=== PATIENT | male | born 1965 | race Caucasian/White ===

== ENCOUNTER → 2024-09-11 18:27 | Outpatient (REF) | payer BC, SELFPAY | LOC: MRI 3T 18:27 | PROVIDERS: ATTENDING PHYSICIAN Specialist; FAMILY PHYSICIAN Family Medicine | DX: R97.20 Elevated prostate specific antigen [PSA] (principal) | CPT/HCPCS: 72197; A9575 ==

== ENCOUNTER 2025-01-23 06:17 | Day surgery (SDC) | payer BC, SELFPAY ==
[2025-01-07 09:01] LABS: Hematocrit 44.9 % (39.0-52.0); Hemoglobin 15.3 g/dL (13.0-18.0); Mean Corp Hgb Conc. 34.1 g/dL (33.0-37.0); Mean Corpuscular Volume 91.1 fL (80.0-94.0); Mean Platelet Volume 10.5 fL (7.4-10.4); Platelet Count 173 10^3/uL (130-400); Red Blood Cell Count 4.93 10^6/uL (4.70-6.10); Red Cell Dist. Width 12.2 % (11.5-14.5); White Blood Cell Count 4.8 10^3/uL (4.8-10.8)
[2025-01-07 09:30] LABS: Blood Urea Nitrogen 22 mg/dl (9-20); Calcium 9.1 mg/dl (8.4-10.2); Carbon Dioxide 29 mmol/L (22-30); Chloride 101 mmol/L (98-107); Glucose 100 mg/dl (70-99); Potassium 4.2 mmol/L (3.5-5.1); Sodium 139 mmol/L (135-145); eGFR > 60.00
[2025-01-07 14:09] VITALS: BMI 28.9
[2025-01-23] VITALS (7 sets, daily range): BP systolic 106–160; BP diastolic 54–101; BMI 28.9
[2025-01-23] MEDS: TYLENOL 1000 MG PO (08:39)
== END 2025-01-23 12:10 | disposition home or self-care (01) ==
LOC: SDS 06:17
PROVIDERS: ATTENDING PHYSICIAN Surgery; FAMILY PHYSICIAN Family Medicine
DX: K40.90 Unilateral inguinal hernia, without obstruction or gangrene, not specified as recurrent (principal)
CPT/HCPCS: 49650; 36415; 80048; 85027; 93005; C1781

== ENCOUNTER 2025-01-27 15:46 | Emergency (ER) | payer BC, SELFPAY ==
[2025-01-27 15:58] VITALS: BP 176/133
[2025-01-27 16:00] VITALS: BP 176/139
[2025-01-27] MEDS: ADENOCARD 6 MG IV (16:01)
[2025-01-27 16:03] VITALS: BP 181/114
[2025-01-27] MEDS: NSS 1000 IV (16:08)
[2025-01-27 16:16] LABS: % Basophils 0.9 % (0-2); % Immature Granulocytes 0.4 % (0-0.5); % Lymphocytes 30.9 % (20.5-51.1); % Monocytes 12.6 % (1.7-9.3); % Neutrophils 52.2 % (42.2-75.2); Absolute Basophils 0.1 10^3/uL (0-0.2); Absolute Eosinophils 0.2 10^3/uL (0-0.7); Absolute Lymphocytes 2.2 10^3/uL (1.2-3.4); Absolute Monocytes 0.9 10^3/uL (0.1-0.6); Absolute Neutrophils 3.7 10^3/uL (1.4-6.5); Hemoglobin 15.3 g/dL (13.0-18.0); Mean Corp Hgb Conc. 34.8 g/dL (33.0-37.0); Mean Corpuscular Volume 89.1 fL (80.0-94.0); Mean Platelet Volume 10.1 fL (7.4-10.4); Nucleated Red Blood Cells % 0 % (-); Platelet Count 205 10^3/uL (130-400); Red Blood Cell Count 4.94 10^6/uL (4.70-6.10); Red Cell Dist. Width 12.1 % (11.5-14.5)
--- NOTE | 2025-01-27 16:18 | ED.GENMED ---
History of Present Illness
<Roberto Josue DO - Last Filed: 01/27/25 16:19>
General
Chief Complaint: Heart Rate Problem
Time Seen by Provider: 01/27/25 16:06
<NATALYA Pino Last Filed: 01/28/25 23:43>
General
Source: patient
Exam Limitations: none
Nursing documentation reviewed up to this point in time: agreed with
History of Present Illness
History of Present Illness:
pt is a 59 y/o M with h/o tachycardia
seen dr larisa shelton but has not had episode caught previously
broke with valsalva
has very inrequent episodes
considered loop recorder
but 4 days ago had uncomplicated hernia repair (lambour) and feeling well
but may be a littlle dehydrated
was working and suddenly felt tachcyardia in the 200s
no chest pain, no syhncope, no vomiting
did not do valsalva because of abdomianl hernia
no blood pressure meds
Past History
<NATALYA Pino Last Filed: 01/28/25 23:43>
Past History
ED Past Medical History: Other (tachycardia)
Review of Systems
<NATALYA Pino Last Filed: 01/28/25 23:43>
Review of Systems
Allergies reviewed?: Yes
All Other Systems: Not applicable
Phy Exam
<NATALYA Pino Last Filed: 01/28/25 23:43>
Physical Exam
Physical Exam:
GENERAL: Alert , in no apparent distress, looks very comfortable
EYE: pupils equal and reactive
NECK: Supple
ENT: o/p clr, mmm.
CARDIAC: Tachycardic to 200S, NO MURMUR, NO EDEMA
LUNGS: Clear breath sounds bilaterally, no acute respiratory distress, no wheezes/rales/rhonchi
ABDOMEN: Soft, without focal tenderness, no r/g, no cvat, normal bowel sounds
NEUROLOGICAL: Alert and oriented, no focal neuro deficits
SKIN: Warm and dry, skin intact.
MUSCULOSKELETAL: No edema, well perfused. neg terry's sign
PSYCH: Normal and appropriate interaction.
Course
<Roberto Josue, DO - Last Filed: 01/27/25 16:19>
Orders/Labs/Results
Orders:
Orders
01/27/25 15:48
EKG [Electrocardiogram (*1)] Urgent
Reason for Study: Tachycardia
EKG- Treatment ONCE
01/27/25 15:56
Adenosine [Adenocard] 18 mg .ROUTE .STK-MED ONE
01/27/25 16:01
Adenosine [Adenocard] 6 mg IV NOW STA
01/27/25 16:03
Electrocardiogram (*1) Urgent
Reason for Study: Tachycardia
EKG- Treatment ONCE
01/27/25 16:06
0.9% Sodium Chloride 1000 ml [Nss] 1,000 ml IV BOLUS
01/27/25 16:08
Complete Blood Count/With Diff Urgent
Comprehensive Metabolic Panel Urgent
Magnesium Urgent
TSH Reflex To Free T4 Urgent
01/27/25 17:18
Metoprolol Xl [Toprol Xl] 25 mg PO NOW STA
Abnormal Lab Results
01/27/25
16:08
Absolute Monos (auto) 0.9 H 10^3/uL
(0.1-0.6)
Monocytes % 12.6 H %
(1.7-9.3)
BUN 21 H mg/dl
(9-20)
Glucose 103 H mg/dl
(70-99)
01/27/25 16:08
01/27/25 16:08
Vital Signs
Initial and Last Documented VS:
Initial Vital Signs
Temp Pulse Resp BP Pulse Ox
36.9 C 203 18 176/133 99
01/27/25 15:58 01/27/25 15:58 01/27/25 15:58 01/27/25 15:58 01/27/25 15:58
Last Documented Vital Signs
Temp Pulse Resp BP Pulse Ox
36.9 C 77 13 141/99 98
01/27/25 15:58 01/27/25 17:15 01/27/25 17:15 01/27/25 17:00 01/27/25 17:15
<Nguyen Duran PA-C - Last Filed: 01/28/25 23:43>
Orders/Labs/Results
Orders:
Orders
01/27/25 15:48
EKG [Electrocardiogram (*1)] Urgent
Reason for Study: Tachycardia
EKG- Treatment ONCE
01/27/25 15:56
Adenosine [Adenocard] 18 mg .ROUTE .STK-MED ONE
01/27/25 16:01
Adenosine [Adenocard] 6 mg IV NOW STA
01/27/25 16:03
Electrocardiogram (*1) Urgent
Reason for Study: Tachycardia
EKG- Treatment ONCE
01/27/25 16:06
0.9% Sodium Chloride 1000 ml [Nss] 1,000 ml IV BOLUS
01/27/25 16:08
Complete Blood Count/With Diff Urgent
Comprehensive Metabolic Panel Urgent
Magnesium Urgent
TSH Reflex To Free T4 Urgent
01/27/25 17:18
Metoprolol Xl [Toprol Xl] 25 mg PO NOW STA
Abnormal Lab Results
01/27/25
16:08
Absolute Monos (auto) 0.9 H 10^3/uL
(0.1-0.6)
Monocytes % 12.6 H %
(1.7-9.3)
BUN 21 H mg/dl
(9-20)
Glucose 103 H mg/dl
(70-99)
01/27/25 16:08
01/27/25 16:08
Vital Signs
Initial and Last Documented VS:
Initial Vital Signs
Temp Pulse Resp BP Pulse Ox
36.9 C 203 18 176/133 99
01/27/25 15:58 01/27/25 15:58 01/27/25 15:58 01/27/25 15:58 01/27/25 15:58
Last Documented Vital Signs
Temp Pulse Resp BP Pulse Ox
36.9 C 77 13 141/99 98
01/27/25 15:58 01/27/25 17:15 01/27/25 17:15 01/27/25 17:00 01/27/25 17:15
<Nguyen Duran PA-C - Last Filed: 01/28/25 23:43>
MDM/Problems Addressed
Differential Diagnosis Includes:
SVT, A-fib
MDM/Problems Addressed:
a patient of dr. bingham's rony hoyos 59 y/o M
has had episodes suspected SVT but it sounds like always valsalvas out of it and has never had it captured
apparently going to maybe have loop recorder
but the episodes are infrequent
had uncomplicated abdominal hernia repair 4 days ago
doing well
suddenly today had HR to 200s; svt
didn't valsalva because of his hernia repair
broke 1 dose adenosine
hr 80s now bp 140/90s (was really hypertesnive 180/110s)
Discussed with Dr. Paula on-call for Dr. Bingham and we came up with a plan of starting metoprolol ER 25 mg once a day, close follow-up encouraged, staying hydrated and avoiding alcohol
<Nguyen Duran PA-C - Last Filed: 01/28/25 23:43>
*Critical Care Note
Total Time (30-74mins, 75-104mins- exclusive of procedures): Not Applicable
ED Attending Note
<Roberto Josue DO - Last Filed: 01/27/25 16:19>
ED Attending Note
Patient seen and examined by attending physician: Yes
I performed the substantive portion of visit, reviewed & personally made and approve the management plan that is documented in note by myself or REKHA.: Yes
ED Attending Note:
I have seen and evaluated the patient with a [id number] encounter. I have spoken to the advance practicer provider and involved in the medical history, the physical exam, medical decision making.
Evaluation and management service: agree unless noted differently below.
Results interpretation: agree unless noted differently below.
Focused HPI: 59-year-old male presenting with sudden onset of palpitations. EKG done in triage showing concern for SVT. Patient had a prior history of SVT that self resolved. He did not want to do a Valsalva maneuver because he just had abdominal
hernia repair
Physical exam: Tachycardic and mildly uncomfortable
Medical Decision Making: Patient given adenosine and broke to a sinus rhythm. Will start beta-duncan
-
Portions of this chart may have been created with voice recognition software.� Occasional wrong word or��sound alike� substitutions may have occurred due to the inherent limitations of voice recognition software.
Discharge Plan
Departure
Patient Disposition: Home (Routine Discharge)
Date of Disposition: 01/27/25
Time of Disposition: 17:27
Patient with high blood pressure during this ER visit?: Yes
Condition: Fair
Covid-19: Not Applicable
Discharge Problem:
Paroxysmal SVT (supraventricular tachycardia)
Instructions: Supraventricular tachycardia (SVT)
Prescriptions:
New
metoprolol succinate 25 mg tablet extended release 24 hr
25 mg PO DAILY Qty: 14 0RF
No Action
acetaminophen [acetaminophen] 325 mg tablet
650 mg PO Q4HPRN PRN (Reason: mild pain) Qty: 1 0RF
ibuprofen 200 mg tablet
400 - 600 mg PO Q6HPRN PRN (Reason: moderate pain) Qty: 1 0RF
oxycodone 5 mg tablet
5 mg PO Q4HPRN PRN (Reason: breakthrough/severe pain) Qty: 5 0RF
Referrals:
Gely Bingham MD [Affiliate] - Follow up in 2-3 days
Ashutosh Aj MD [Family Provider] -
Stand Alone Forms: Return to Work
Activity Restrictions/Additional Instructions:
YOU HAD AN EPISODE OF SVT TODAY
START METOPROLOL SUCCINATE 25 MG ONCE A DAY TO LOWER YOUR RISK OF HAVING RECURRENCE, THIS WILL ALSO LOWER YOUR HEART RATE AND YOUR BLOOD PRESSURE WAS ELEVATED
CALL DR. BINGHAM FOR FOLLOW UP WITHIN 1 WEEK
RETURN FOR: WORSENING EPISODES, TROUBLE BREATHING, PASSING OUT, ETC
YOUR ELECTROLYTES WERE STABLE
YOU WERE NOT ANEMIC
Interventions
Interventions:
*Risk Screen - Suicide Last Done: 01/27/25 16:00
*General Assessment Last Done: 01/27/25 16:00
*Neglect/Abuse Screening Last Done: 01/27/25 16:00
*ED- Fall Risk Assessment Last Done: 01/27/25 16:00
*ED COVID-19 Vaccine History Last Done: 01/27/25 16:00
*Nursing Disposition Last Done: 01/27/25 17:35
ED- Cardiac Assessment Last Done: 01/27/25 16:00
ED- Pulmonary Assessment Last Done: 01/27/25 16:00
Discharge Date and Time
Discharge Date/Time: 01/27/25 17:35
Print Language: AUSTRIAN
[2025-01-27 16:36] LABS: ALT (SGPT) 36 U/L (0-50); AST (SGOT) 31 U/L (17-59); Albumin 4.3 g/dl (3.5-5.0); Alkaline Phosphatase 73 U/L (38-126); Blood Urea Nitrogen 21 mg/dl (9-20); Calcium 9.4 mg/dl (8.4-10.2); Carbon Dioxide 29 mmol/L (22-30); Chloride 105 mmol/L (98-107); Glucose 103 mg/dl (70-99); Magnesium 2.1 mg/dl (1.6-2.3); Potassium 3.7 mmol/L (3.5-5.1); Sodium 140 mmol/L (135-145); Total Protein 6.8 g/dl (6.3-8.2); eGFR > 60.00
[2025-01-27 16:42] VITALS: BP 149/99
[2025-01-27 17:00] VITALS: BP 141/99
[2025-01-27 17:06] LABS: TSH Reflex To Free T4 3.61 uIU/ml (0.47-4.68)
[2025-01-27] MEDS: TOPROL XL 25 MG PO (17:21)
== END 2025-01-27 17:35 | disposition home or self-care (01) ==
LOC: EMR 15:46
PROVIDERS: Physician Assistant; EMERGENCY PHYSICIAN Student in an Organized Health Care Education/Training Program; FAMILY PHYSICIAN Family Medicine
DX: I47.19 Other supraventricular tachycardia (principal)
CPT/HCPCS: 96374; 96361; 99284; 80053; 83735; 84443; 85025; 93005; J0153